=== PATIENT | female | born 2000 | race Caucasian/White ===

== ENCOUNTER 2022-03-12 15:38 | Emergency (ER) | payer MEDICAID, SELFPAY ==
[2022-03-12 16:02] VITALS: BP 128/84; PULSE 87; O2SAT 100; BMI 21.6
--- NOTE | 2022-03-12 16:14 | ED.PSYCH ---
HPI - Psych General Chief Complaint: Psychiatric Symptoms Stated Complaint: TOXIC INGESTION Source: patient and EMS Mode of arrival: EMS Limitations: no limitations History of Present Illness MD complaint: suicidal ideation and feels depressed Onset (ago): day(s) Duration: constant and getting worse History of same: No Relieving factors: none Context: significant life stressor Associated psychiatric symptoms: depression Associated symptoms: denies other symptoms Treatments prior to arrival: placed on mental health hold If self harm: intentional overdose (ibuprofen) Related Data Home Medications Medication Instructions Recorded Confirmed No Known Home Meds 03/12/22 03/12/22 Allergies Allergy/AdvReac Type Severity Reaction Status Date / Time No Known Allergies Allergy Unverified 03/02/20 17:06 [No Known Allergies*] Review of Systems Review of Systems: Constitutional: No Fever, No Chills ENT/Mouth: No Ear Pain, No Nasal Congestion, No sore throat Eyes: No Eye Pain, No Swelling, No Redness Cardiovascular: No Chest Pain, No SOB Respiratory: No Cough, No Sputum, No Dyspnea Gastrointestinal: No Nausea, No Vomiting, No Diarrhea, No Hematochezia, No Melena Genitourinary: No Dysuria, No Urinary Frequency, No Hematuria Musculoskeletal: No Myalgias Skin: No Skin Lesions, No rash Neuro: No Weakness, No Numbness, No Paresthesias, No Dizziness, No Headache Psych: positive Anxiety, positive Depression, positive SI Heme/Lymph: No Lymphadenopathy Endocrine: No Polyuria, No Polydipsia Yes all other systems are reviewed and are negative PMFSH Past Medical History Attestation statement: The following information was validated with the patient. Source: old records reviewed Social History Social History Patient Tobacco Use Status: Never used Tobacco Use of substances other than those prescribed or required for medical reasons: No Advance Directives: No Advance Directives Information Provided: Yes Physical Exam Vital Signs: Vital Signs: Last Vital Signs Temp 98.7 F 03/12/22 23:49 Pulse 73 03/12/22 23:49 Resp 16 03/12/22 23:49 BP 108/47 L 03/12/22 23:49 Pulse Ox 98 03/12/22 23:49 O2 Del Method 03/12/22 23:49 BMI result Body Mass Index 21.6 Appearance: Alert. Oriented X3. Moderate emotional distress. Crying. Eyes: Pupils equal, round and reactive to light. ENT: Pharynx normal. Neck: Normal inspection. Neck supple. CVS: Normal heart rate and rhythm. Pulses normal. Respiratory: No respiratory distress. Breath sounds normal. Abdomen: Soft and nontender. Skin: Skin warm and dry. Normal skin color. Normal skin turgor. Extremities: No lower extremity edema. Gait well balanced well coordinated. Neuro: No motor deficit. No sensory deficit. Cranial nerves 2-12 intact. Course Course Course Narrative: 21-year-old female presents via EMS for intentional ibuprofen overdose. She thinks that she took possibly 6-10 tablets of 600 mg of ibuprofen approximately 30 minutes prior to arrival. She states that she has been having a difficult time managing her emotions, she does not report suicidality with a plan, she just wanted to escape and fall asleep. She does not report assault, physical or sexual trauma, or illicit drug use. She states that she having a difficult time managing her personal well-being. She is not getting into detail, and I will have crisis investigate further. At this time patient has some epigastric and substernal chest pain radiating to the left chest she states that it is hard to breathe. She is answering questions politely and appropriately, even unlabored respirations, appears nontoxic and is afebrile. Will have RN poison Control, will order L of fluid and Protonix, labs, and presents. 19:40 labs and unremarkable, positive for marijuana. 21:00 repeat BNP at this time. 23:15 repeat chemistries are within normal limits. Patient medically cleared. Physician observation started at this time. BHN pending 00:20 BHN consult complete. Plan of care is inpatient bed search. MDM - Psych Differential Diagnosis Differential diagnosis: Likely suicidal ideation, depression, acute anxiety and post-traumatic stress disorder Medical Records Attestation: I reviewed the patient's medical records. Lab Data Attestation: I reviewed the patient's lab results. Result diagrams: 03/12/22 18:03 03/12/22 22:39 Labs: Lab Results 03/12/22 03/12/22 03/12/22 Range/Units 18:03 18:03 18:52 WBC 10.2 (4.8-10.8) X10*3/uL RBC 4.40 (4.20-5.50) X10*6/uL Hgb 12.1 (12.0-16.0) g/dl Hct 37.6 (37.0-47.0) % MCV 85.5 (80.0-98.0) fL MCH 27.5 (27.0-33.0) pg MCHC 32.2 (31.0-35.0) g/dl RDW 14.1 (11.0-16.0) % Plt Count 278 (160-400) X10*3/uL MPV 9.3 L (9.4-12.3) fL Immature Gran % (Auto) 0.6 H (0.0-0.4) % Neut % (Auto) 61.6 (45-73) % Lymph % (Auto) 29.5 (20-40) % [place] % (Auto) 7.6 (2-11) % Eos % (Auto) 0.4 (0-4) % Baso % (Auto) 0.3 (0-2) % Lymph # (Auto) 3.0 (1.2-4.9) X10*3/uL [place] # (Auto) 0.8 (0.1-1.2) X10*3/uL Eos # (Auto) 0.0 (0.0-0.4) X10*3/uL Baso # (Auto) 0.0 (0.0-0.2) X10*3/uL Abs Immat Gran (auto) 0.06 H (0.00-0.03) X10*3/uL Absolute Neuts (auto) 6.3 (2.0-8.3) x10*3/uL Absolute Nucleated RBC 0.000 (0.0-0.012) X10*3/uL Nucleated RBC % (auto) 0.0 (0.0-0.2) /100WBC Sodium 140 (135-145) mmol/L Potassium 3.3 (3.3-5.1) mmol/L Chloride 110 H (96-108) mmol/L Carbon Dioxide 20 L (22-29) mmol/L Anion Gap 13 (12-20) BUN 9 (9-16) mg/dL Creatinine 0.73 (0.5-1.4) mg/dL Estim Creat Clear Calc 111.5 Estimated GFR > 60 Random Glucose 79 (60-115) mg/dL Calcium 8.7 (8.4-10.2) mg/dL Total Bilirubin 0.7 (0.0-1.0) mg/dL AST 14 (5-31) U/L ALT 9 (0-31) U/L Alkaline Phosphatase 37 L (39-117) U/L Total Protein 5.9 L (6.5-8.0) g/dL Albumin 3.7 (3.5-5.0) g/dL Urine Color Urine Appearance Urine pH (5.0-9.0) Ur Specific [place] (1.005-1.025) Urine Protein (Neg-Trace) mg/dL Urine Glucose (UA) (Negative) mg/dL Urine Ketones (Negative) mg/dL Urine Blood (Negative) Urine Nitrite (Negative) Ur Leukocyte Esterase (Negative) Urine RBC (0-2) /HPF Urine WBC (0-5) /HPF Ur Squamous Epith Cells (0-2) /HPF Urine Bacteria (None Seen) Hyaline Casts (0-2) /LPF Urine Test (NEGATIVE) Salicylates < 5.0 L (15-30) mg/dL Urine Opiates Screen Not Detected (Not Detect) Urine Fentanyl Screen Not Detected (Not Detect) Acetaminophen < 1 (<30) mcg/mL Ur Barbiturates Screen Not Detected (Not Detect) Ur Phencyclidine Scrn Not Detected (Not Detect) Ur Amphetamines Screen Not Detected (Not Detect) U Benzodiazepines Scrn Not Detected (Not Detect) Urine Cocaine Screen Not Detected (Not Detect) U Marijuana (THC) Screen POSITIVE H (Not Detect) Ethyl Alcohol < 10 mg/dL COVID-19 (TERRI) (Negative) COVID-19 Clin Com 03/12/22 03/12/22 03/12/22 Range/Units 18:52 18:52 22:39 WBC (4.8-10.8) X10*3/uL RBC (4.20-5.50) X10*6/uL Hgb (12.0-16.0) g/dl Hct (37.0-47.0) % MCV (80.0-98.0) fL MCH (27.0-33.0) pg MCHC (31.0-35.0) g/dl RDW (11.0-16.0) % Plt Count (160-400) X10*3/uL MPV (9.4-12.3) fL Immature Gran % (Auto) (0.0-0.4) % Neut % (Auto) (45-73) % Lymph % (Auto) (20-40) % [place] % (Auto) (2-11) % Eos % (Auto) (0-4) % Baso % (Auto) (0-2) % Lymph # (Auto) (1.2-4.9) X10*3/uL [place] # (Auto) (0.1-1.2) X10*3/uL Eos # (Auto) (0.0-0.4) X10*3/uL Baso # (Auto) (0.0-0.2) X10*3/uL Abs Immat Gran (auto) (0.00-0.03) X10*3/uL Absolute Neuts (auto) (2.0-8.3) x10*3/uL Absolute Nucleated RBC (0.0-0.012) X10*3/uL Nucleated RBC % (auto) (0.0-0.2) /100WBC Sodium 141 (135-145) mmol/L Potassium 3.4 (3.3-5.1) mmol/L Chloride 110 H (96-108) mmol/L Carbon Dioxide 21 L (22-29) mmol/L Anion Gap 13 (12-20) BUN 7 L (9-16) mg/dL Creatinine 0.73 (0.5-1.4) mg/dL Estim Creat Clear Calc 111.5 Estimated GFR > 60 Random Glucose 132 H (60-115) mg/dL Calcium 9.0 (8.4-10.2) mg/dL Total Bilirubin (0.0-1.0) mg/dL AST (5-31) U/L ALT (0-31) U/L Alkaline Phosphatase (39-117) U/L Total Protein (6.5-8.0) g/dL Albumin (3.5-5.0) g/dL Urine Color Yellow Urine Appearance Clear Urine pH 6.0 (5.0-9.0) Ur Specific [place] <= 1.005 (1.005-1.025) Urine Protein Negative (Neg-Trace) mg/dL Urine Glucose (UA) Negative (Negative) mg/dL Urine Ketones 15 (Negative) mg/dL Urine Blood Negative (Negative) Urine Nitrite Negative (Negative) Ur Leukocyte Esterase Trace H (Negative) Urine RBC 0-2 (0-2) /HPF Urine WBC 6-10 H (0-5) /HPF Ur Squamous Epith Cells 6-10 (0-2) /HPF Urine Bacteria 1+ (None Seen) Hyaline Casts 0-2 (0-2) /LPF Urine Test NEGATIVE (NEGATIVE) Salicylates (15-30) mg/dL Urine Opiates Screen (Not Detect) Urine Fentanyl Screen (Not Detect) Acetaminophen (<30) mcg/mL Ur Barbiturates Screen (Not Detect) Ur Phencyclidine Scrn (Not Detect) Ur Amphetamines Screen (Not Detect) U Benzodiazepines Scrn (Not Detect) Urine Cocaine Screen (Not Detect) U Marijuana (THC) Screen (Not Detect) Ethyl Alcohol mg/dL COVID-19 (TERRI) (Negative) COVID-19 Clin Com 03/12/22 Range/Units 23:36 WBC (4.8-10.8) X10*3/uL RBC (4.20-5.50) X10*6/uL Hgb (12.0-16.0) g/dl Hct (37.0-47.0) % MCV (80.0-98.0) fL MCH (27.0-33.0) pg MCHC (31.0-35.0) g/dl RDW (11.0-16.0) % Plt Count (160-400) X10*3/uL MPV (9.4-12.3) fL Immature Gran % (Auto) (0.0-0.4) % Neut % (Auto) (45-73) % Lymph % (Auto) (20-40) % [place] % (Auto) (2-11) % Eos % (Auto) (0-4) % Baso % (Auto) (0-2) % Lymph # (Auto) (1.2-4.9) X10*3/uL [place] # (Auto) (0.1-1.2) X10*3/uL Eos # (Auto) (0.0-0.4) X10*3/uL Baso # (Auto) (0.0-0.2) X10*3/uL Abs Immat Gran (auto) (0.00-0.03) X10*3/uL Absolute Neuts (auto) (2.0-8.3) x10*3/uL Absolute Nucleated RBC (0.0-0.012) X10*3/uL Nucleated RBC % (auto) (0.0-0.2) /100WBC Sodium (135-145) mmol/L Potassium (3.3-5.1) mmol/L Chloride (96-108) mmol/L Carbon Dioxide (22-29) mmol/L Anion Gap (12-20) BUN (9-16) mg/dL Creatinine (0.5-1.4) mg/dL Estim Creat Clear Calc Estimated GFR Random Glucose (60-115) mg/dL Calcium (8.4-10.2) mg/dL Total Bilirubin (0.0-1.0) mg/dL AST (5-31) U/L ALT (0-31) U/L Alkaline Phosphatase (39-117) U/L Total Protein (6.5-8.0) g/dL Albumin (3.5-5.0) g/dL Urine Color Urine Appearance Urine pH (5.0-9.0) Ur Specific [place] (1.005-1.025) Urine Protein (Neg-Trace) mg/dL Urine Glucose (UA) (Negative) mg/dL Urine Ketones (Negative) mg/dL Urine Blood (Negative) Urine Nitrite (Negative) Ur Leukocyte Esterase (Negative) Urine RBC (0-2) /HPF Urine WBC (0-5) /HPF Ur Squamous Epith Cells (0-2) /HPF Urine Bacteria (None Seen) Hyaline Casts (0-2) /LPF Urine Test (NEGATIVE) Salicylates (15-30) mg/dL Urine Opiates Screen (Not Detect) Urine Fentanyl Screen (Not Detect) Acetaminophen (<30) mcg/mL Ur Barbiturates Screen (Not Detect) Ur Phencyclidine Scrn (Not Detect) Ur Amphetamines Screen (Not Detect) U Benzodiazepines Scrn (Not Detect) Urine Cocaine Screen (Not Detect) U Marijuana (THC) Screen (Not Detect) Ethyl Alcohol mg/dL COVID-19 (TERRI) Negative (Negative) COVID-19 Clin Com See Note ECG Data Attestation: I personally reviewed and interpreted this ECG as follows: ECG interpretation date: 03/12/22 ECG interpretation time: 22:03 Prior ECG tracings: not available for review Interpretation: Vent. rate 70 BPM GA interval 120 ms QRS duration 76 ms QT/QTc 352/380 ms P-R-T axes 66 83 44 Normal sinus rhythm with sinus arrhythmia Normal ECG No previous ECGs available Discharge Plan Discharge Clinical Impression: Major depression, Intentional ibuprofen overdose Patient Disposition: Still a Patient Prescriptions: No Action No Known Home Meds
[2022-03-12 16:24] VITALS: BP 106/51; PULSE 65; RESP 18; TEMP 36.4; O2SAT 99
--- NOTE | 2022-03-12 16:24 | PC.NURSE ---
POISON CONTROL CONTACTED- STATES WAY UNDER TOXIC DOSE AND DOES NOT RECOMMEND ACTIVATED CHARCOAL
--- NOTE | 2022-03-12 16:26 | ECG_ITS ---
Test Reason : CHEST PRESSURE Blood Pressure : / mmHG Vent. Rate : 070 BPM Atrial Rate : 070 BPM P-R Int : 120 ms QRS Dur : 076 ms QT Int : 352 ms P-R-T Axes : 066 083 044 degrees QTc Int : 380 ms Normal sinus rhythm with sinus arrhythmia Normal ECG No previous ECGs available Referred By: Niyah Crawford Electronically Signed By:CHRIS DORAN
[2022-03-12] MEDS: 0.9 % Sodium Chloride 1,000 ML 999 ML IVCONT (17:19)
[2022-03-12] MEDS: Pantoprazole Sodium 40 MG/10 ML VIAL IVPUSH (17:19)
[2022-03-12 18:09] LABS: MANUAL DIFF FLAG NO
[2022-03-12 18:26] LABS: Alanine Aminotransferase 9 U/L (0-31); Albumin Level 3.7 g/dL (3.5-5.0); Alkaline Phosphatase 37 U/L (39-117); Anion Gap 13 (12-20); Aspartate Amino Transferase 14 U/L (5-31); Bilirubin Total 0.7 mg/dL (0.0-1.0); Blood Urea Nitrogen 9 mg/dL (9-16); Calcium 8.7 mg/dL (8.4-10.2); Carbon Dioxide 20 mmol/L (22-29); Chloride 110 mmol/L (96-108); Creatinine Clr Calc Pharmacy 111.5; Estimated Glomerular Filt Rate > 60; Ethanol < 10 mg/dL; Glucose Random 79 mg/dL (60-115); Potassium 3.3 mmol/L (3.3-5.1); Sodium 140 mmol/L (135-145); Total Protein 5.9 g/dL (6.5-8.0)
[2022-03-12 18:34] LABS: Basophils Percent Auto 0.3 % (0-2); Eosinophils Percent Auto 0.4 % (0-4); Hematocrit 37.6 % (37.0-47.0); Hemoglobin 12.1 g/dl (12.0-16.0); Imm Gran Abs Auto 0.06 X10*3/uL (0.00-0.03); Imm Gran Pct Auto 0.6 % (0.0-0.4); Lymphocytes Percent Auto 29.5 % (20-40); Mean Corpuscular HGB Conc 32.2 g/dl (31.0-35.0); Mean Corpuscular Hemoglobin 27.5 pg (27.0-33.0); Mean Corpuscular Volume 85.5 fL (80.0-98.0); Mean Platelet Volume 9.3 fL (9.4-12.3); Monocytes Absolute Auto 0.8 X10*3/uL (0.1-1.2); Monocytes Percent Auto 7.6 % (2-11); Neutrophils Absolute Auto 6.3 x10*3/uL (2.0-8.3); Neutrophils Percent Auto 61.6 % (45-73); Platelet Count 278 X10*3/uL (160-400); Red Cell Distribution Width 14.1 % (11.0-16.0); White Blood Count 10.2 X10*3/uL (4.8-10.8)
[2022-03-12 18:50] LABS: Acetaminophen LAB < 1 mcg/mL (<30); Salicylate < 5.0 mg/dL (15-30)
[2022-03-12 19:09] LABS: Appearance Urine Clear; Color Urine Yellow; Glucose Urine UA Negative (Negative); Leukocyte Esterase Urine Trace (Negative); Nitrite Urine Negative (Negative); Specific Gravity - Urine <= 1.005 (1.005-1.025); UMIC TRIGGER UACC YES; Urine Blood Negative (Negative); Urine Ketones 15 mg/dL (Negative); Urine Protein Negative (Neg-Trace)
[2022-03-12 19:11] LABS: UPreg QC Valid YES; Urine Pregnancy NEGATIVE (NEGATIVE)
[2022-03-12 19:15] LABS: Amphetamine Screen Urine Not Detected (Not Detect); Barbiturates, Urine Not Detected (Not Detect); Benzodiazepines Screen Urine Not Detected (Not Detect); Cannabinoid Screen Urine POSITIVE (Not Detect); Cocaine Screen Urine Not Detected (Not Detect); Fentanyl, urine Not Detected (Not Detect); Opiate Screen Urine Not Detected (Not Detect); Phencyclidine Screen Urine Not Detected (Not Detect)
[2022-03-12 19:17] LABS: Bacteria Urine 1+ (None Seen); Hyaline Casts Urine 0-2 /LPF (0-2); RBC Urine 0-2 /HPF (0-2); UACC Culture Trigger YES
[2022-03-12 20:15] VITALS: BP 105/54; PULSE 62; RESP 16; TEMP 36.5; O2SAT 100
--- NOTE | 2022-03-12 20:46 | PC.NURSE ---
collaborative teacher to bedside to speak with patient and mother per bedside sitter/patient observer request due to mother's escalating behavior. Prior to collaborative teacher's arrival at bedside, sitter/PO reports mother was yelling in her face requesting that the pt receive paperwork to be signed out and sent home. Upon RN's arrivl to bedside the mother was noted standing, daughter/patient tearful and staff weapons officer requested. component technician to bedside and mother expressed her concerns regarding her own health and need to take medication which she has at home and how remaining in the ed with the patient would inhibit that; child care counselor made mother aware of pt's section 12 status and inability to sign herself out with BHN/Crisis eval/clearance first. Mother continued to report how she didn't understand as the pt doesn't have no tubes and didn't get her stomach pumped she only took 5 little pills . Further explanation provided, pt and mother aware pt cannot sign out and mother aware she can go home as pt is an adult and does not require guardian/parent companionship unless desired. Mother verbalized understanding. Per pt request RN checked with POD RN who consulted BHN who reports the pt was consulted/talked to in the field but a disposition could not be made; plan is for BHN re-eval in AM. Additional family member at bedside, pt calm and cooperative and sitter remains at bedside
[2022-03-12 22:59] LABS: Anion Gap 13 (12-20); Blood Urea Nitrogen 7 mg/dL (9-16); Carbon Dioxide 21 mmol/L (22-29); Chloride 110 mmol/L (96-108); Creatinine Clr Calc Pharmacy 111.5; Estimated Glomerular Filt Rate > 60; Glucose Random 132 mg/dL (60-115); Potassium 3.4 mmol/L (3.3-5.1); Sodium 141 mmol/L (135-145)
[2022-03-12 23:49] VITALS: BP 108/47; PULSE 73; RESP 16; TEMP 37.1; O2SAT 98
[2022-03-12 23:59] LABS: COVID-19 Test Negative (Negative)
--- NOTE | 2022-03-13 06:13 | PC.NURSE ---
Patient slept though the night, no distress observed/reported, behavior appropriate and non concerning, med rec completed/patient is currently not on any medication, patient was assessed by JAYMEN, disposition is section 12 inpatient bed search, VSS, will continue to monitor.
--- NOTE | 2022-03-13 07:00 | PC.NURSE ---
patient appears to remain asleep at present respirations are even and unlabored patient appears in no distress
--- NOTE | 2022-03-13 10:33 | PM.PSYCN ---
History of Present Illness Date of Service: 03/13/2022 Chief Complaint: TOXIC INGESTION Discussed with referring provider: Yes Sources of Information: patient interviewed, chart reviewed and crisis/core team assessment reviewed Additional Sources of Information: Mother was at bedside HPI Narrative: Ms. Cordoba is a 21 year-old woman with no prior psych hx. She was brought in to [facility] [place] ED via EMS after mother called 911 after pt disclosed to her sister that she had taken OD on ibuprofen (5-10 tabs of 600mg ibuprofen) in context of recent break up with boyfriend of 3 years. Utox positive for cannabinoids. Medical work up unremarkable including EKG, CBC, CMP. VS stable. No medical complications noted in ED. She is currently, medically cleared. Pt presents as tearful and cooperative. She reports she realized that it was the wrong decision to take ibuprofen. She reports she wasn't thinking of ending her life, in a way ending pain. She reports she ended relationship of 3 years recently after learning BF was seeing another woman. Pt reports she is very close to her mother but had not told her about the break up as she did not want to worry her. Mother reports she was very surprised as she states she has 3 children and Abbi is usually the one who is more level headed and organized. Abbi adamadntly denies suicidal ideation. She does report feeling saddened by break up but also reports she realizes that such sadness although difficult to overcome will not be there forever. Pt is open and requesting connection with therapist to process recent break up. She presents as future oriented in that she wants to continue work and seeing her family. Pt appropriately tearful when hearing mother's concern when mother found out that she had an overdose. No prior hx of suicide attempt. No hx of VH/AH. No hx of s/s suggestive of hypomania or murphy. Past Psychiatric History: Inpatient: none OP: none Medical Evaluation Reviewed: Yes Diagnostics Vital Signs (24Hr): Vital Signs - 24 hr 03/12/22 16:24 03/12/22 20:15 03/12/22 23:49 Temperature 97.5 F 97.7 F 98.7 F Pulse Rate 65 62 73 Respiratory Rate 18 16 16 Blood Pressure 106/51 L 105/54 L 108/47 L Pulse Oximetry 99 100 98 Oxygen Delivery Method Room Air Room Air Room Air BMI result Body Mass Index 21.6 Labs Results: 03/12/22 18:03 03/12/22 22:39 Labs: Laboratory Results - last 48 hr 03/12/22 03/12/22 03/12/22 18:03 18:03 18:52 WBC 10.2 RBC 4.40 Hgb 12.1 Hct 37.6 MCV 85.5 MCH 27.5 MCHC 32.2 RDW 14.1 Plt Count 278 MPV 9.3 L Immature Gran % (Auto) 0.6 H Neut % (Auto) 61.6 Lymph % (Auto) 29.5 [place] % (Auto) 7.6 Eos % (Auto) 0.4 Baso % (Auto) 0.3 Lymph # (Auto) 3.0 [place] # (Auto) 0.8 Eos # (Auto) 0.0 Baso # (Auto) 0.0 Abs Immat Gran (auto) 0.06 H Absolute Neuts (auto) 6.3 Absolute Nucleated RBC 0.000 Nucleated RBC % (auto) 0.0 Sodium 140 Potassium 3.3 Chloride 110 H Carbon Dioxide 20 L Anion Gap 13 BUN 9 Creatinine 0.73 Estim Creat Clear Calc 111.5 Estimated GFR > 60 Random Glucose 79 Calcium 8.7 Total Bilirubin 0.7 AST 14 ALT 9 Alkaline Phosphatase 37 L Total Protein 5.9 L Albumin 3.7 Urine Color Urine Appearance Urine pH Ur Specific [place] Urine Protein Urine Glucose (UA) Urine Ketones Urine Blood Urine Nitrite Ur Leukocyte Esterase Urine RBC Urine WBC Ur Squamous Epith Cells Urine Bacteria Hyaline Casts Urine Test Salicylates < 5.0 L Urine Opiates Screen Not Detected Urine Fentanyl Screen Not Detected Acetaminophen < 1 Ur Barbiturates Screen Not Detected Ur Phencyclidine Scrn Not Detected Ur Amphetamines Screen Not Detected U Benzodiazepines Scrn Not Detected Urine Cocaine Screen Not Detected U Marijuana (THC) Screen POSITIVE H Ethyl Alcohol < 10 COVID-19 (TERRI) COVID-19 Clin Com 03/12/22 03/12/22 03/12/22 18:52 18:52 22:39 WBC RBC Hgb Hct MCV MCH MCHC RDW Plt Count MPV Immature Gran % (Auto) Neut % (Auto) Lymph % (Auto) [place] % (Auto) Eos % (Auto) Baso % (Auto) Lymph # (Auto) [place] # (Auto) Eos # (Auto) Baso # (Auto) Abs Immat Gran (auto) Absolute Neuts (auto) Absolute Nucleated RBC Nucleated RBC % (auto) Sodium 141 Potassium 3.4 Chloride 110 H Carbon Dioxide 21 L Anion Gap 13 BUN 7 L Creatinine 0.73 Estim Creat Clear Calc 111.5 Estimated GFR > 60 Random Glucose 132 H Calcium 9.0 Total Bilirubin AST ALT Alkaline Phosphatase Total Protein Albumin Urine Color Yellow Urine Appearance Clear Urine pH 6.0 Ur Specific [place] <= 1.005 Urine Protein Negative Urine Glucose (UA) Negative Urine Ketones 15 Urine Blood Negative Urine Nitrite Negative Ur Leukocyte Esterase Trace H Urine RBC 0-2 Urine WBC 6-10 H Ur Squamous Epith Cells 6-10 Urine Bacteria 1+ Hyaline Casts 0-2 Urine Test NEGATIVE Salicylates Urine Opiates Screen Urine Fentanyl Screen Acetaminophen Ur Barbiturates Screen Ur Phencyclidine Scrn Ur Amphetamines Screen U Benzodiazepines Scrn Urine Cocaine Screen U Marijuana (THC) Screen Ethyl Alcohol COVID-19 (TERRI) COVID-19 Accurate Group 03/12/22 23:36 WBC RBC Hgb Hct MCV MCH MCHC RDW Plt Count MPV Immature Gran % (Auto) Neut % (Auto) Lymph % (Auto) [place] % (Auto) Eos % (Auto) Baso % (Auto) Lymph # (Auto) [place] # (Auto) Eos # (Auto) Baso # (Auto) Abs Immat Gran (auto) Absolute Neuts (auto) Absolute Nucleated RBC Nucleated RBC % (auto) Sodium Potassium Chloride Carbon Dioxide Anion Gap BUN Creatinine Estim Creat Clear Calc Estimated GFR Random Glucose Calcium Total Bilirubin AST ALT Alkaline Phosphatase Total Protein Albumin Urine Color Urine Appearance Urine pH Ur Specific [place] Urine Protein Urine Glucose (UA) Urine Ketones Urine Blood Urine Nitrite Ur Leukocyte Esterase Urine RBC Urine WBC Ur Squamous Epith Cells Urine Bacteria Hyaline Casts Urine Test Salicylates Urine Opiates Screen Urine Fentanyl Screen Acetaminophen Ur Barbiturates Screen Ur Phencyclidine Scrn Ur Amphetamines Screen U Benzodiazepines Scrn Urine Cocaine Screen U Marijuana (THC) Screen Ethyl Alcohol COVID-19 (TERRI) Negative COVID-19 [facility] Com See Note Mental Status Exam Mental Status Exam Narrative: Appearance: wearing hospital gown, fair hygiene in NAD Behavior:cooperative psychomotor: no agitation or retardation noted Speech: clear, normal rate/rhythm/volume, spontaneous Thought process: linear Thought content:no signs of psychosis, future oriented, remorceful about OD. Mood: calmer Affect: congruent SI:none HI:none VH/AH:none Delusions: none Insight/judgment:fair x 2. Memory/cog: alert, oriented x 3. grossly intact to conversational testing. Medications Allergies Allergies Allergy/AdvReac Type Severity Reaction Status Date / Time No Known Allergies Allergy Unverified 03/02/20 17:06 [No Known Allergies*] Assessment & Plan Assessment & Plan (1) Stress reaction causing mixed disturbance of emotion and conduct: Status: Acute Code(s): F43.0 - Acute stress reaction (2) Intentional ibuprofen overdose: Status: Acute Code(s): T39.312A - Poisoning by propionic acid derivatives, intentional self-harm, initial encounter Plan Ms. Cordoba is a 21 year-old woman with no prior psych hx. Pt brought via EMS to [facility] [place] ED after intentional OD on ibuprofen in context of recent break up with BF of last 3 years. Pt adamantly denies SI/HI. She is remorceful about OD, which she also reports not with intent to end life but stop emotional pains. Utox positive for cannabis. No medical complications after OD. Mother at bedside, denies safety concerns at this time and both pt and mother in agreement with referrals to therapy. Mother reports she plans to lock all medications and reports pt will be by her side until seen by therapist. PLAN 1. No imminent safety concern in terms of suicidal or homicidal ideation. Pt in agreement to continue OP psychotherapy. Mother in agreement with plan and denies safety concerns at this time. 2. BHN/Care team to coordinate f/u OP appointments. I spent minutes with the patient and/or on the patient floor today, greater than?50% of which was spent counseling/coordinating care.
[2022-03-13 10:36] VITALS: BP 107/51; PULSE 68; RESP 17; TEMP 36.3; O2SAT 97
== END 2022-03-13 11:05 | disposition home or self-care (01) ==
PROVIDERS: Nurse Practitioner Family; Emergency Provider Internal Medicine
DX: F33.1 Major depressive disorder, recurrent, moderate (principal); F43.0 Acute stress reaction; T39.312A Poisoning by propionic acid derivatives, intentional self-harm, initial encounter; Y92.9 Unspecified place or not applicable; Z20.822 Contact with and (suspected) exposure to COVID-19; Z79.899 Other long term (current) drug therapy
CPT/HCPCS: 36415; 80048; 80053; 80143; 80179; 80307; 81001; 81003; 81025; 82077; 85025; 87086; 87635; 93005; 96361; 96374; 99285